=== PATIENT | male | born 1985 | race Caucasian/White ===

== ENCOUNTER 2016-12-12 12:00 | Emergency (ER) | payer SELFPAY ==
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
[2016-12-12] MEDS ORDERED: Zofran 4 MG/2 ML VIAL IV ONE (12:22)
[2016-12-12] MEDS ORDERED: Sodium Chloride 0.9% 1000 ML 1,000 ML IV STA (12:22)
[2016-12-12] MEDS ORDERED: BENADRYL 50 MG/ML IV ONE (12:22)
[2016-12-12] MEDS ORDERED: Zofran 4 MG/2 ML VIAL ONE (12:27)
[2016-12-12] MEDS ORDERED: BENADRYL 50 MG/ML ONE (12:27)
[2016-12-12] MEDS ORDERED: Sodium Chloride 0.9% 1000 ML 1,000 ML ONE (12:27)
[2016-12-12 13:08] LABS: BASOPHIL % 0.2 % (0.0-0.4); Eosinophil % 1.5 % (0.00-5.0); Granulocytes % 61.2 % (36.0-66.0); Lymphocytes % 27.3 % (24.0-44.0); Mean Cell Volume 90.8 fl (78-100); Mean Corpuscular Hemoglobin 29.5 pg (26-32); Mean Platelet Volume 9.6 fl (6-9.5); Monocytes % 9.8 % (0.0-12.0); Platelet Count 234 K/mm3 (150-450); Red Blood Count 4.91 M/mm3 (4.1-5.6); Red Cell Distribution Width 13.1 % (11.5-14.0)
[2016-12-12 13:37] LABS: ALBUMIN 3.4 g/dL (3.4-5.0); ALKALINE PHOSPHATASE 50 U/L (46-116); ANION GAP 14.3 MEQ/L (5-15); BILIRUBIN,TOTAL 0.6 mg/dL (0.2-1.0); BLOOD UREA NITROGEN 13 mg/dL (9-20); CHLORIDE 109 mEq/L (98-107); Glucose 99 MG/DL (70-110); LIPASE 97 U/L (73-393); Potassium 4.2 mEq/L (3.5-5.1); SGOT/AST 15 U/L (15-37); SGPT/ALT 25 U/L (12-78); SODIUM 144 mEq/L (136-145); Total Protein 6.1 gm/dL (6.4-8.2)
[2016-12-12] MEDS ORDERED: SUBLIMAZE 100 MCG/2 ML IV ONE (13:52)
[2016-12-12] MEDS ORDERED: SUBLIMAZE 100 MCG/2 ML ONE ×2 (13:54→14:01)
[2016-12-12 14:31] LABS: Collection Type VOID
[2016-12-12 14:32] LABS: Bacteria FEW /HPF (NEGATIVE); COMPLETE URINE MICROSCOPIC? YES; Epithelial Cells FEW /HPF (FEW); Ph 7.5 (5-6)
[2016-12-12 14:42] VITALS: O2SAT 99
[2016-12-12 15:08] VITALS: BP 114/74; PULSE 56
== END 2016-12-12 15:08 | disposition home or self-care (01) ==
LOC: ED 12:00
DX: R10.84 Generalized abdominal pain (principal); R11.2 Nausea with vomiting, unspecified; R19.7 Diarrhea, unspecified; K52.9 Noninfective gastroenteritis and colitis, unspecified
CPT/HCPCS: 36000; 36415; 80053; 81000; 82150; 83690; 83735; 85025; 87070; 87430; 96360; 96374; 96375; 99283; 99284; J1200; J2405; J3010